=== PATIENT | female | born 1965 | race Two or more races ===

== ENCOUNTER 2022-02-14 20:05 | Inpatient (IN) | payer MEDICAID, OTHER ==
[~2022-02-14] VITALS: Ht 165.1 cm; Wt 64.6 kg
[2022-02-14] MEDS ORDERED: PIOG45TA64 PO (21:11)
[2022-02-14] MEDS ORDERED: VENL-66 PO (21:11)
[2022-02-14] MEDS ORDERED: METF-1211 PO (21:11)
[2022-02-14] MEDS ORDERED: INSU100V36 SQ (21:11)
[2022-02-14] MEDS ORDERED: LEVE500L PO (21:11)
[2022-02-14] MEDS ORDERED: INSU100I26 SQ (21:11)
[2022-02-14] MEDS ORDERED: METF-446 PO (21:11)
[2022-02-14] MEDS ORDERED: LORA-999 PO (21:11)
[2022-02-14] MEDS ORDERED: SERT-440 PO (21:11)
[2022-02-14] MEDS ORDERED: GLIP5TAB11 PO (21:11)
[2022-02-14] MEDS ORDERED: DONE5TAB33 PO (21:11)
[2022-02-14] MEDS ORDERED: SIMV-43 PO (21:11)
[2022-02-14] MEDS ORDERED: MEMA10TA55 PO (21:11)
[2022-02-14] MEDS ORDERED: LORA2VIA8 PO (21:11)
[2022-02-14 22:23] LABS: BASOPHILS % (AUTO) 0.4 % (0.0-2.0); EOSINOPHILS % (AUTO) 3.9 % (1.0-6.0); HEMOGLOBIN 11.8 g/dL (12.0-16.0); LYMPHOCYTES # (AUTO) 2.1 K/uL (1.0-4.8); LYMPHOCYTES % (AUTO) 31.2 % (22.0-44.0); MEAN CORPUSCULAR HEMOGLOBIN 31.7 pg (26.0-34.0); MEAN CORPUSCULAR HGB CONC 33.8 G/dL (31.0-37.0); MEAN CORPUSCULAR VOLUME 94 fL (80-100); MONOCYTES # (AUTO) 0.5 K/uL (0.1-1.0); MONOCYTES % (AUTO) 7.2 % (2.0-9.0); NEUTROPHILS # (AUTO) 3.8 K/uL (1.8-7.7); NEUTROPHILS % (AUTO) 57.3 % (40.0-70.0); PLATELET COUNT (AUTO) 249 K/uL (150-450); RED BLOOD CELL COUNT(AUTO) 3.72 MIL/uL (4.00-5.20); RED CELL DISTRIBUTION WIDTH 13.8 % (11.5-14.5)
[2022-02-14 22:31] LABS: ANION GAP 7 mmol/L (8-16); CALCIUM, TOTAL 9.4 mg/dL (8.8-10.5); CARBON DIOXIDE 32 mmol/L (22-29); CHLORIDE 100 mmol/L (98-107); CREATININE 0.86 mg/dL (0.60-1.30); GLOMERULAR FILTR. RATE CALC > 60 mL/min (>60); GLUCOSE,RANDOM 301 mg/dL (70-110); POTASSIUM 3.7 mmol/L (3.5-5.1); SODIUM SERUM 139 mmol/L (136-145); UREA NITROGEN, BLOOD 20 mg/dL (7-18)
[2022-02-14 22:45] LABS: ALANINE AMINOTRANSFERASE 20 U/L (12-78); ALBUMIN 3.5 g/dL (3.4-5.0); ALKALINE PHOSPHATASE 110 U/L (46-116); ASPARTATE AMINOTRANSFERASE 19 U/L (15-37); BILIRUBIN,TOTAL 0.4 mg/dL (0.1-1.0); THYROID STIMULATING HORMONE 1.07 uIU/mL (0.36-3.74); TOTAL PROTEIN, SERUM 7.5 g/dL (6.4-8.2)
[2022-02-14 23:06] LABS: COVID AG,FIA SOURCE NASAL SWAB
[2022-02-15 00:21] LABS: APPEARANCE,URINE CLEAR (CLEAR); BILIRUBIN,URINE NEGATIVE (NEGATIVE); GLUCOSE, URINE (UA) >=1000 mg/dL (NEGATIVE); KETONES,URINE NEGATIVE (NEGATIVE); LEUKOCYTE ESTERASE ,URINE TRACE (NEGATIVE); NITRATE,URINE NEGATIVE (NEGATIVE); OCCULT BLOOD,URINE NEGATIVE (NEGATIVE); PROTEIN,URINE NEGATIVE (NEGATIVE); SPECIFIC GRAVITIY, URINE 1.026 (1.003-1.030); UROBILINOGEN,URINE <=1.0 mg/dL (<=1.0)
[2022-02-15 00:27] LABS: AMPHET/METH SCREEN,URINE NEGATIVE (NEGATIVE); BARBITURATE SCREEN, URINE NEGATIVE (NEGATIVE); BENZODIAZEPINES SCREEN,URINE NEGATIVE (NEGATIVE); CANNABINOID SCREEN,URINE NEGATIVE (NEGATIVE); COCAINE SCREEN,URINE NEGATIVE (NEGATIVE); METHADONE SCREEN, URINE NEGATIVE (NEGATIVE); OPIATE SCREEN,URINE NEGATIVE (NEGATIVE)
[2022-02-15 00:28] LABS: PHENCYCLIDINE SCREEN,URINE NEGATIVE (NEGATIVE)
[2022-02-15 00:38] LABS: AMORPHOUS SEDIMENT,UR Few /LPF (None Seen); BACTERIA,URINE None Seen /HPF (None Seen); RBC,URINE 0-2 /HPF (0-2); SQUAMOUS EPITHELIAL CELL,UR Rare /LPF (None Seen); WBC,URINE 0-2 /HPF (0-5)
[2022-02-15] MEDS ORDERED: ZOLPIDEM TARTRATE 10 MG TABLET PO PRN (01:00)
[2022-02-15 02:09] VITALS: BP 134/65
[2022-02-15] MEDS: LORazepam 2 MG TABLET PO PRN ×2 (02:42→11:06)
[2022-02-15] MEDS: HALOPERIDOL 5 MG TABLET PO PRN ×3 (02:42→16:07)
[2022-02-15] MEDS ORDERED: INFLUENZA VIRUS VACCINE QVS 2021-22 (6MO+)/PF 60 MCG/0.5 ML SYRINGE IM. ONE (06:15)
[2022-02-15 08:59] VITALS: BP 128/83
[2022-02-15 10:36] VITALS: BP 109/47
[2022-02-15] MEDS: MetFORMIN HCL 500 MG TABLET PO SCH ×2 (11:04→16:07)
[2022-02-15] MEDS: GlipiZIDE 5 MG TABLET PO SCH ×2 (11:04→16:50)
[2022-02-15] MEDS: SERTRALINE HCL 100 MG TABLET PO SCH (11:05)
[2022-02-15] MEDS: DIVALPROEX SODIUM 500 MG DR TABLET PO SCH ×2 (11:05→20:16)
[2022-02-15] MEDS ORDERED: CloNIDine HCL 0.1 MG TABLET PO PRN (11:15)
[2022-02-15] MEDS ORDERED: NICOTINE 14 MG/24 HOUR PATCH TD PRN (11:15)
[2022-02-15] MEDS ORDERED: ALBUTEROL SULFATE HFA 90 MCG/PUFF 8 GM INHALER IH PRN (11:15)
[2022-02-15] MEDS ORDERED: DOCUSATE SODIUM 100 MG CAPSULE PO PRN (11:15)
[2022-02-15] MEDS ORDERED: PETROLATUM,WHITE 28 GM JELLY TP PRN (11:15)
[2022-02-15] MEDS ORDERED: DEXTROSE 50%-WATER 25 GM/50 ML SYRINGE IVP PRN (11:15)
[2022-02-15] MEDS ORDERED: ONDANSETRON HCL 4 MG TABLET PO PRN (11:15)
[2022-02-15] MEDS ORDERED: LOPERAMIDE HCL 2 MG CAPSULE PO PRN (11:15)
[2022-02-15] MEDS ORDERED: MAGNESIUM HYDROXIDE SUSPENSION 30 ML UDCUP PO PRN (11:15)
[2022-02-15] MEDS ORDERED: GuaiFENesin/D-METHORPHAN [SUGAR-FREE] 200-20MG/10 ML SYRUP UDCUP PO PRN (11:15)
[2022-02-15] MEDS: PIOGLITAZONE HCL 45 MG TABLET PO SCH (11:15)
[2022-02-15] MEDS ORDERED: ACETAMINOPHEN 325 MG TABLET PO PRN (11:15)
[2022-02-15] MEDS ORDERED: IBUPROFEN 400 MG TABLET PO PRN (11:15)
[2022-02-15] MEDS ORDERED: MAG HYDROX/AL HYDROX/SIMETH ES 30 ML SUSPENSION UDCUP PO PRN (11:15)
[2022-02-15] MEDS: INSULIN LISPRO 100 UNITS/ML SQ PRN ×3 (11:43→21:35)
[2022-02-15 11:46] LABS: GLUCOMETER DEV NAME(LOC) 3E.C; GLUCOSE,POINT OF CARE 276 MG/DL (70-110)
[2022-02-15] MEDS: LevETIRAcetam 500 MG TABLET PO SCH (16:07)
[2022-02-15 16:17] VITALS: BP 143/76
[2022-02-15 17:01] LABS: GLUCOMETER DEV NAME(LOC) 3E.C; GLUCOSE,POINT OF CARE 236 MG/DL (70-110)
[2022-02-15] MEDS: SIMVASTATIN 20 MG TABLET PO SCH (20:16)
[2022-02-15 20:22] LABS: GLUCOMETER DEV NAME(LOC) 3E.C; GLUCOSE,POINT OF CARE 240 MG/DL (70-110)
[2022-02-16] MEDS: MetFORMIN HCL 500 MG TABLET PO SCH ×2 (06:30→17:42)
[2022-02-16] MEDS: GlipiZIDE 5 MG TABLET PO SCH ×2 (06:30→17:42)
[2022-02-16 06:41] LABS: GLUCOMETER DEV NAME(LOC) 3E.C; GLUCOSE,POINT OF CARE 91 MG/DL (70-110)
[2022-02-16 08:53] VITALS: BP 116/60
[2022-02-16] MEDS: DIVALPROEX SODIUM 500 MG DR TABLET PO SCH ×2 (08:54→20:14)
[2022-02-16] MEDS: PIOGLITAZONE HCL 45 MG TABLET PO SCH (08:54)
[2022-02-16] MEDS: SERTRALINE HCL 100 MG TABLET PO SCH (08:55)
[2022-02-16] MEDS: LevETIRAcetam 500 MG TABLET PO SCH ×2 (08:55→16:37)
[2022-02-16 11:51] LABS: GLUCOMETER DEV NAME(LOC) 3E.C; GLUCOSE,POINT OF CARE 154 MG/DL (70-110)
[2022-02-16 16:18] VITALS: BP 98/60
[2022-02-16 16:56] LABS: GLUCOMETER DEV NAME(LOC) 3E.C; GLUCOSE,POINT OF CARE 177 MG/DL (70-110)
[2022-02-16] MEDS: SIMVASTATIN 20 MG TABLET PO SCH (20:14)
[2022-02-16 20:41] LABS: GLUCOMETER DEV NAME(LOC) 3E.C; GLUCOSE,POINT OF CARE 168 MG/DL (70-110)
[2022-02-17 06:26] LABS: GLUCOMETER DEV NAME(LOC) 3E.C; GLUCOSE,POINT OF CARE 76 MG/DL (70-110)
[2022-02-17] MEDS: GlipiZIDE 5 MG TABLET PO SCH ×2 (06:40→16:52)
[2022-02-17] MEDS: MetFORMIN HCL 500 MG TABLET PO SCH ×2 (06:41→16:52)
[2022-02-17] MEDS: INSULIN LISPRO 100 UNITS/ML SQ PRN ×3 (06:42→21:10)
[2022-02-17 08:35] LABS: GLUCOMETER DEV NAME(LOC) 3E.C; GLUCOSE,POINT OF CARE 99 MG/DL (70-110)
[2022-02-17] MEDS: LevETIRAcetam 500 MG TABLET PO SCH ×2 (09:00→16:52)
[2022-02-17] MEDS: SERTRALINE HCL 100 MG TABLET PO SCH (09:00)
[2022-02-17] MEDS: DIVALPROEX SODIUM 500 MG DR TABLET PO SCH ×2 (09:00→20:04)
[2022-02-17] MEDS: PIOGLITAZONE HCL 45 MG TABLET PO SCH (09:00)
[2022-02-17 10:17] VITALS: BP 105/52
[2022-02-17 12:12] LABS: GLUCOMETER DEV NAME(LOC) 3E.C; GLUCOSE,POINT OF CARE 115 MG/DL (70-110)
[2022-02-17 16:19] VITALS: BP 137/87
[2022-02-17 16:45] LABS: GLUCOMETER DEV NAME(LOC) 3E.C; GLUCOSE,POINT OF CARE 171 MG/DL (70-110)
[2022-02-17] MEDS: SIMVASTATIN 20 MG TABLET PO SCH (20:03)
[2022-02-17 20:26] LABS: GLUCOMETER DEV NAME(LOC) 3E.C; GLUCOSE,POINT OF CARE 212 MG/DL (70-110)
[2022-02-18 06:21] LABS: GLUCOMETER DEV NAME(LOC) 3E.C; GLUCOSE,POINT OF CARE 288 MG/DL (70-110)
[2022-02-18] MEDS: GlipiZIDE 5 MG TABLET PO SCH ×2 (06:33→16:51)
[2022-02-18] MEDS: MetFORMIN HCL 500 MG TABLET PO SCH ×2 (06:34→17:35)
[2022-02-18] MEDS: INSULIN LISPRO 100 UNITS/ML SQ PRN ×4 (06:36→20:38)
[2022-02-18 08:21] VITALS: BP 125/63
[2022-02-18] MEDS: DIVALPROEX SODIUM 500 MG DR TABLET PO SCH ×2 (08:47→20:31)
[2022-02-18] MEDS: HALOPERIDOL 5 MG TABLET PO PRN ×2 (08:47→20:32)
[2022-02-18] MEDS: SERTRALINE HCL 100 MG TABLET PO SCH (08:47)
[2022-02-18] MEDS: LevETIRAcetam 500 MG TABLET PO SCH ×2 (08:47→16:52)
[2022-02-18] MEDS: LORazepam 2 MG TABLET PO PRN (08:47)
[2022-02-18] MEDS: PIOGLITAZONE HCL 45 MG TABLET PO SCH (08:48)
[2022-02-18 16:12] VITALS: BP 123/60
[2022-02-18 17:01] LABS: GLUCOMETER DEV NAME(LOC) 3E.C; GLUCOSE,POINT OF CARE 158 MG/DL (70-110)
[2022-02-18] MEDS: SIMVASTATIN 20 MG TABLET PO SCH (20:31)
[2022-02-18 20:51] LABS: GLUCOMETER DEV NAME(LOC) 3E.C; GLUCOSE,POINT OF CARE 254 MG/DL (70-110)
[2022-02-19] MEDS: MetFORMIN HCL 500 MG TABLET PO SCH (06:59)
[2022-02-19] MEDS: GlipiZIDE 5 MG TABLET PO SCH (06:59)
[2022-02-19 07:06] LABS: GLUCOMETER DEV NAME(LOC) 3E.C; GLUCOSE,POINT OF CARE 135 MG/DL (70-110)
[2022-02-19] MEDS ORDERED: LEVE500T8 PO (09:32)
[2022-02-19] MEDS ORDERED: SERT-440 PO (09:32)
[2022-02-19] MEDS ORDERED: SIMV-43 PO (09:32)
[2022-02-19] MEDS ORDERED: GLIP5TAB11 PO (09:32)
[2022-02-19] MEDS ORDERED: METF-1211 PO (09:32)
[2022-02-19] MEDS ORDERED: PIOG45TA64 PO (09:32)
[2022-02-19] MEDS ORDERED: MEMA10TA55 PO (09:32)
[2022-02-19] MEDS ORDERED: DONE5TAB33 PO (09:32)
[2022-02-19] MEDS ORDERED: DIVA-112 PO (09:32)
[2022-02-19] MEDS: PIOGLITAZONE HCL 45 MG TABLET PO SCH (10:53)
[2022-02-19] MEDS: SERTRALINE HCL 100 MG TABLET PO SCH (10:54)
[2022-02-19] MEDS: DIVALPROEX SODIUM 500 MG DR TABLET PO SCH (10:54)
[2022-02-19] MEDS: LevETIRAcetam 500 MG TABLET PO SCH (10:55)
[2022-02-19] MEDS: INSULIN LISPRO 100 UNITS/ML SQ PRN (13:08)
[2022-02-19 13:21] LABS: GLUCOMETER DEV NAME(LOC) 3E.C; GLUCOSE,POINT OF CARE 183 MG/DL (70-110)
== END 2022-02-19 14:45 | DRG 750 ==
LOC: EMS 20:11 → 3EC 02-15 01:58
PROVIDERS: ADMIT Psychiatry & Neurology Psychiatry; ATTEND Psychiatry & Neurology Psychiatry
DX: F20.0 Paranoid schizophrenia (principal); F03.91 Unspecified dementia, unspecified severity, with behavioral disturbance; E11.9 Type 2 diabetes mellitus without complications; G40.909 Epilepsy, unspecified, not intractable, without status epilepticus; E78.5 Hyperlipidemia, unspecified; F31.9 Bipolar disorder, unspecified; D64.9 Anemia, unspecified; Z20.822 Contact with and (suspected) exposure to COVID-19; Z86.73 Personal history of transient ischemic attack (TIA), and cerebral infarction without residual deficits; Z98.2 Presence of cerebrospinal fluid drainage device; Z28.21 Immunization not carried out because of patient refusal; Z79.4 Long term (current) use of insulin
CPT/HCPCS: 80053; 81001; 82962; 84443; 85025; 87081; 99285; G0480

== ENCOUNTER 2022-04-14 19:48 | Inpatient (IN) | payer MEDICAID, OTHER ==
[~2022-04-14] VITALS: Ht 167.6 cm; Wt 62.9 kg
[~2022-04-14 19:48] MED LIST: DIVA-112 PO; DONE5TAB33 PO; GLIP5TAB11 PO; LEVE500T8 PO; MEMA10TA55 PO; METF-1211 PO; PIOG45TA64 PO; SERT-440 PO; SIMV-43 PO
[2022-04-14 20:50] LABS: BASOPHILS % (AUTO) 0.3 % (0.0-2.0); EOSINOPHILS % (AUTO) 8.3 % (1.0-6.0); HEMATOCRIT 32.6 % (36-46); HEMOGLOBIN 11.1 g/dL (12.0-16.0); LYMPHOCYTES % (AUTO) 31.2 % (22.0-44.0); MEAN CORPUSCULAR HEMOGLOBIN 32.4 pg (26.0-34.0); MEAN CORPUSCULAR HGB CONC 34.1 G/dL (31.0-37.0); MEAN CORPUSCULAR VOLUME 95 fL (80-100); MONOCYTES # (AUTO) 0.6 K/uL (0.1-1.0); MONOCYTES % (AUTO) 8.8 % (2.0-9.0); NEUTROPHILS # (AUTO) 3.3 K/uL (1.8-7.7); NEUTROPHILS % (AUTO) 51.4 % (40.0-70.0); PLATELET COUNT (AUTO) 208 K/uL (150-450); RED BLOOD CELL COUNT(AUTO) 3.43 MIL/uL (4.00-5.20); RED CELL DISTRIBUTION WIDTH 14.6 % (11.5-14.5)
[2022-04-14 20:59] LABS: ANION GAP 7 mmol/L (8-16); CALCIUM, TOTAL 8.9 mg/dL (8.8-10.5); CARBON DIOXIDE 31 mmol/L (22-29); CHLORIDE 102 mmol/L (98-107); CREATININE 0.76 mg/dL (0.60-1.30); GLOMERULAR FILTR. RATE CALC > 60 mL/min (>60); GLUCOSE,RANDOM 135 mg/dL (70-110); POTASSIUM 4.1 mmol/L (3.5-5.1); SODIUM SERUM 140 mmol/L (136-145); UREA NITROGEN, BLOOD 33 mg/dL (7-18)
[2022-04-14 21:04] LABS: ALANINE AMINOTRANSFERASE 21 U/L (12-78); ALBUMIN 3.3 g/dL (3.4-5.0); ALKALINE PHOSPHATASE 77 U/L (46-116); ASPARTATE AMINOTRANSFERASE 13 U/L (15-37); BILIRUBIN,TOTAL 0.3 mg/dL (0.1-1.0); TOTAL PROTEIN, SERUM 7.2 g/dL (6.4-8.2)
[2022-04-14] MEDS ORDERED: QUET25TA36 PO (21:49)
[2022-04-14 22:06] LABS: GLUCOMETER DEV NAME(LOC) ERT.5; GLUCOSE,POINT OF CARE 92 MG/DL (70-110)
[2022-04-14] MEDS ORDERED: ZOLPIDEM TARTRATE 10 MG TABLET PO PRN (22:45)
[2022-04-14 23:08] LABS: COVID AG,FIA SOURCE NASOPHARYNGEAL
[2022-04-14] MEDS ORDERED: PERMETHRIN 5% 60 GM CREAM TP ONE (23:30)
[2022-04-15] MEDS ORDERED: LORazepam 2 MG/ML VIAL IM ONE (00:15)
[2022-04-15] MEDS ORDERED: DiphenhydrAMINE HCL 50 MG/ML VIAL IM ONE (00:15)
[2022-04-15] MEDS ORDERED: HALOPERIDOL LACTATE 5 MG/ML VIAL IM ONE (00:15)
[2022-04-15 12:23] VITALS: BP 104/67
[2022-04-15] MEDS ORDERED: METF-1211 PO (13:28)
[2022-04-15] MEDS ORDERED: GLIP5TAB11 PO (13:28)
[2022-04-15] MEDS ORDERED: PNEUMOCOCCAL VACCINE POLYVALENT 0.5 ML VIAL [PPSV23] IM. ONE (14:00)
[2022-04-15 16:18] VITALS: BP 100/65
[2022-04-15] MEDS: MetFORMIN HCL 500 MG TABLET PO SCH (16:34)
[2022-04-15] MEDS: LevETIRAcetam 500 MG TABLET PO SCH (16:34)
[2022-04-15] MEDS: GlipiZIDE 5 MG TABLET PO SCH (16:34)
[2022-04-15 16:46] LABS: GLUCOMETER DEV NAME(LOC) 3E.C; GLUCOSE,POINT OF CARE 191 MG/DL (70-110)
[2022-04-15] MEDS: SIMVASTATIN 20 MG TABLET PO SCH (20:24)
[2022-04-15] MEDS: LORazepam 2 MG TABLET PO PRN (20:24)
[2022-04-16 06:56] LABS: GLUCOMETER DEV NAME(LOC) 3E.C; GLUCOSE,POINT OF CARE 101 MG/DL (70-110)
[2022-04-16 06:56] LABS: GLUCOMETER DEV NAME(LOC) 3E.C; GLUCOSE,POINT OF CARE 55 MG/DL (70-110)
[2022-04-16] MEDS ORDERED: GlipiZIDE 5 MG TABLET PO SCH (07:00)
[2022-04-16] MEDS ORDERED: ALBUTEROL SULFATE HFA 90 MCG/PUFF 8 GM INHALER IH PRN (07:00)
[2022-04-16] MEDS ORDERED: DOCUSATE SODIUM 100 MG CAPSULE PO PRN (07:00)
[2022-04-16] MEDS ORDERED: NICOTINE 14 MG/24 HOUR PATCH TD PRN (07:00)
[2022-04-16] MEDS ORDERED: MAG HYDROX/AL HYDROX/SIMETH ES 30 ML SUSPENSION UDCUP PO PRN (07:00)
[2022-04-16] MEDS ORDERED: PETROLATUM,WHITE 28 GM JELLY TP PRN (07:00)
[2022-04-16] MEDS: GlipiZIDE 5 MG TABLET PO SCH ×2 (07:00→16:55)
[2022-04-16] MEDS ORDERED: LOPERAMIDE HCL 2 MG CAPSULE PO PRN (07:00)
[2022-04-16] MEDS ORDERED: ONDANSETRON HCL 4 MG TABLET PO PRN (07:00)
[2022-04-16] MEDS ORDERED: GuaiFENesin/D-METHORPHAN [SUGAR-FREE] 200-20MG/10 ML SYRUP UDCUP PO PRN (07:00)
[2022-04-16] MEDS ORDERED: CloNIDine HCL 0.1 MG TABLET PO PRN (07:00)
[2022-04-16] MEDS ORDERED: MAGNESIUM HYDROXIDE SUSPENSION 30 ML UDCUP PO PRN (07:00)
[2022-04-16] MEDS ORDERED: ACETAMINOPHEN 325 MG TABLET PO PRN (07:00)
[2022-04-16] MEDS: MetFORMIN HCL 500 MG TABLET PO SCH ×2 (07:00→16:55)
[2022-04-16] MEDS ORDERED: IBUPROFEN 400 MG TABLET PO PRN (07:00)
[2022-04-16] MEDS ORDERED: MetFORMIN HCL 500 MG TABLET PO SCH (07:30)
[2022-04-16] MEDS: MEMANTINE HCL 10 MG TABLET PO SCH ×2 (09:00→12:29)
[2022-04-16] MEDS ORDERED: LevETIRAcetam 500 MG TABLET PO SCH (09:00)
[2022-04-16] MEDS: PIOGLITAZONE HCL 45 MG TABLET PO SCH ×2 (09:00→12:30)
[2022-04-16] MEDS ORDERED: DONEPEZIL HCL 5 MG TABLET PO SCH (09:00)
[2022-04-16] MEDS: LevETIRAcetam 500 MG TABLET PO SCH ×3 (09:00→16:55)
[2022-04-16] MEDS ORDERED: PIOGLITAZONE HCL 45 MG TABLET PO SCH (09:00)
[2022-04-16] MEDS ORDERED: MEMANTINE HCL 10 MG TABLET PO SCH (09:00)
[2022-04-16] MEDS: DONEPEZIL HCL 5 MG TABLET PO SCH ×2 (09:00→12:30)
[2022-04-16] MEDS: SERTRALINE HCL 100 MG TABLET PO SCH (13:52)
[2022-04-16] MEDS: VALPROIC ACID 250 MG CAPSULE PO SCH ×2 (15:17→21:05)
[2022-04-16 16:18] VITALS: BP 120/62
[2022-04-16] MEDS: QUEtiapine FUMARATE 100 MG TABLET PO PRN (16:55)
[2022-04-16] MEDS ORDERED: SIMVASTATIN 20 MG TABLET PO SCH (21:00)
[2022-04-16] MEDS: SIMVASTATIN 20 MG TABLET PO SCH (21:05)
[2022-04-17] MEDS: GlipiZIDE 5 MG TABLET PO SCH ×2 (06:58→17:51)
[2022-04-17] MEDS: MetFORMIN HCL 500 MG TABLET PO SCH ×2 (06:58→17:51)
[2022-04-17 07:51] LABS: BASOPHILS % (AUTO) 0.2 % (0.0-2.0); EOSINOPHILS % (AUTO) 6.2 % (1.0-6.0); HEMATOCRIT 35.3 % (36-46); LYMPHOCYTES # (AUTO) 1.2 K/uL (1.0-4.8); LYMPHOCYTES % (AUTO) 20.6 % (22.0-44.0); MEAN CORPUSCULAR HEMOGLOBIN 32.3 pg (26.0-34.0); MEAN CORPUSCULAR HGB CONC 34.1 G/dL (31.0-37.0); MEAN CORPUSCULAR VOLUME 95 fL (80-100); MONOCYTES # (AUTO) 0.4 K/uL (0.1-1.0); MONOCYTES % (AUTO) 7.8 % (2.0-9.0); NEUTROPHILS # (AUTO) 3.7 K/uL (1.8-7.7); NEUTROPHILS % (AUTO) 65.2 % (40.0-70.0); PLATELET COUNT (AUTO) 209 K/uL (150-450); RED BLOOD CELL COUNT(AUTO) 3.72 MIL/uL (4.00-5.20); RED CELL DISTRIBUTION WIDTH 14.3 % (11.5-14.5)
[2022-04-17 10:01] VITALS: BP 99/55
[2022-04-17] MEDS: SERTRALINE HCL 100 MG TABLET PO SCH (11:09)
[2022-04-17] MEDS: LevETIRAcetam 500 MG TABLET PO SCH ×2 (11:09→17:51)
[2022-04-17] MEDS: PIOGLITAZONE HCL 45 MG TABLET PO SCH (11:10)
[2022-04-17] MEDS: VALPROIC ACID 250 MG CAPSULE PO SCH ×2 (11:10→20:26)
[2022-04-17] MEDS: DONEPEZIL HCL 5 MG TABLET PO SCH (11:11)
[2022-04-17] MEDS: MEMANTINE HCL 10 MG TABLET PO SCH (11:11)
[2022-04-17 16:06] VITALS: BP 107/74
[2022-04-17 16:32] LABS: GLUCOMETER DEV NAME(LOC) 3E.C; GLUCOSE,POINT OF CARE 126 MG/DL (70-110)
[2022-04-17 16:39] LABS: GLUCOMETER DEV NAME(LOC) 3E.C; GLUCOSE,POINT OF CARE 226 MG/DL (70-110)
[2022-04-17 16:39] LABS: GLUCOMETER DEV NAME(LOC) 3E.C; GLUCOSE,POINT OF CARE 126 MG/DL (70-110)
[2022-04-17] MEDS: SIMVASTATIN 20 MG TABLET PO SCH (20:26)
[2022-04-18 06:26] LABS: GLUCOMETER DEV NAME(LOC) 3E.C; GLUCOSE,POINT OF CARE 73 MG/DL (70-110)
[2022-04-18] MEDS: GlipiZIDE 5 MG TABLET PO SCH ×2 (06:34→16:22)
[2022-04-18] MEDS: MetFORMIN HCL 500 MG TABLET PO SCH ×2 (06:34→16:23)
[2022-04-18 08:21] VITALS: BP 106/69
[2022-04-18] MEDS: PIOGLITAZONE HCL 45 MG TABLET PO SCH ×2 (09:00→10:04)
[2022-04-18] MEDS: DONEPEZIL HCL 5 MG TABLET PO SCH ×2 (09:00→10:04)
[2022-04-18] MEDS: SERTRALINE HCL 100 MG TABLET PO SCH ×2 (09:00→10:04)
[2022-04-18] MEDS: MEMANTINE HCL 10 MG TABLET PO SCH ×2 (09:00→10:04)
[2022-04-18] MEDS: LevETIRAcetam 500 MG TABLET PO SCH ×3 (09:00→16:23)
[2022-04-18] MEDS: VALPROIC ACID 250 MG CAPSULE PO SCH ×2 (10:04→20:14)
[2022-04-18 16:18] VITALS: BP 114/72
[2022-04-18 16:56] LABS: GLUCOMETER DEV NAME(LOC) 3E.C; GLUCOSE,POINT OF CARE 292 MG/DL (70-110)
[2022-04-18] MEDS: LORazepam 2 MG TABLET PO PRN (18:00)
[2022-04-18] MEDS: SIMVASTATIN 20 MG TABLET PO SCH (20:15)
[2022-04-19] MEDS: GlipiZIDE 5 MG TABLET PO SCH ×2 (06:30→16:43)
[2022-04-19] MEDS: MetFORMIN HCL 500 MG TABLET PO SCH ×2 (06:32→16:43)
[2022-04-19 08:09] VITALS: BP 125/49
[2022-04-19] MEDS: PIOGLITAZONE HCL 45 MG TABLET PO SCH (09:00)
[2022-04-19] MEDS: DONEPEZIL HCL 5 MG TABLET PO SCH (09:00)
[2022-04-19] MEDS: LevETIRAcetam 500 MG TABLET PO SCH ×2 (09:00→16:43)
[2022-04-19] MEDS: MEMANTINE HCL 10 MG TABLET PO SCH (09:00)
[2022-04-19] MEDS: VALPROIC ACID 250 MG CAPSULE PO SCH ×2 (09:00→20:23)
[2022-04-19] MEDS: SERTRALINE HCL 100 MG TABLET PO SCH (09:00)
[2022-04-19] MEDS: LORazepam 2 MG TABLET PO PRN (13:31)
[2022-04-19] MEDS: QUEtiapine FUMARATE 100 MG TABLET PO PRN (13:31)
[2022-04-19 16:51] LABS: GLUCOMETER DEV NAME(LOC) 3E.C; GLUCOSE,POINT OF CARE 347 MG/DL (70-110)
[2022-04-19] MEDS: SIMVASTATIN 20 MG TABLET PO SCH (20:23)
[2022-04-20 06:51] LABS: GLUCOMETER DEV NAME(LOC) 3E.C; GLUCOSE,POINT OF CARE 149 MG/DL (70-110)
[2022-04-20] MEDS: GlipiZIDE 5 MG TABLET PO SCH ×2 (07:00→16:52)
[2022-04-20] MEDS: MetFORMIN HCL 500 MG TABLET PO SCH ×2 (07:01→16:51)
[2022-04-20 07:06] LABS: COVID AG,FIA SOURCE NASAL SWAB
[2022-04-20 08:18] VITALS: BP 103/60
[2022-04-20] MEDS: LevETIRAcetam 500 MG TABLET PO SCH ×2 (10:22→16:52)
[2022-04-20] MEDS: DONEPEZIL HCL 5 MG TABLET PO SCH (10:22)
[2022-04-20] MEDS: PIOGLITAZONE HCL 45 MG TABLET PO SCH (10:22)
[2022-04-20] MEDS: SERTRALINE HCL 100 MG TABLET PO SCH (10:23)
[2022-04-20] MEDS: VALPROIC ACID 250 MG CAPSULE PO SCH ×2 (10:23→20:29)
[2022-04-20] MEDS: MEMANTINE HCL 10 MG TABLET PO SCH (10:24)
[2022-04-20] MEDS: LORazepam 2 MG TABLET PO PRN ×2 (10:24→19:34)
[2022-04-20] MEDS: QUEtiapine FUMARATE 100 MG TABLET PO PRN (10:24)
[2022-04-20 16:16] LABS: GLUCOMETER DEV NAME(LOC) 3E.C; GLUCOSE,POINT OF CARE 294 MG/DL (70-110)
[2022-04-20] MEDS: SIMVASTATIN 20 MG TABLET PO SCH (20:29)
[2022-04-21] MEDS: GlipiZIDE 5 MG TABLET PO SCH ×2 (06:33→19:25)
[2022-04-21] MEDS: MetFORMIN HCL 500 MG TABLET PO SCH ×2 (06:33→19:26)
[2022-04-21 06:36] LABS: GLUCOMETER DEV NAME(LOC) 3E.C; GLUCOSE,POINT OF CARE 184 MG/DL (70-110)
[2022-04-21] MEDS: PIOGLITAZONE HCL 45 MG TABLET PO SCH (09:49)
[2022-04-21] MEDS: VALPROIC ACID 250 MG CAPSULE PO SCH (09:50)
[2022-04-21] MEDS: DONEPEZIL HCL 5 MG TABLET PO SCH (09:51)
[2022-04-21] MEDS: MEMANTINE HCL 10 MG TABLET PO SCH (09:51)
[2022-04-21] MEDS: LORazepam 2 MG TABLET PO PRN (09:53)
[2022-04-21] MEDS: LevETIRAcetam 500 MG TABLET PO SCH ×2 (09:53→19:25)
[2022-04-21] MEDS: SERTRALINE HCL 100 MG TABLET PO SCH (09:53)
[2022-04-21] MEDS ORDERED: VALPROIC ACID 250 MG/5 ML SOLUTION UDCUP PO ONE (10:00)
[2022-04-21 16:36] LABS: GLUCOMETER DEV NAME(LOC) 3E.C; GLUCOSE,POINT OF CARE 248 MG/DL (70-110)
[2022-04-21] MEDS: SIMVASTATIN 20 MG TABLET PO SCH (20:11)
[2022-04-21] MEDS: VALPROIC ACID 250 MG/5 ML SOLUTION UDCUP PO SCH (20:11)
[2022-04-22 06:51] LABS: GLUCOMETER DEV NAME(LOC) 3E.C; GLUCOSE,POINT OF CARE 123 MG/DL (70-110)
[2022-04-22] MEDS: GlipiZIDE 5 MG TABLET PO SCH ×2 (06:56→17:32)
[2022-04-22] MEDS: MetFORMIN HCL 500 MG TABLET PO SCH ×2 (06:57→17:32)
[2022-04-22 08:00] VITALS: BP 101/58
[2022-04-22] MEDS: PIOGLITAZONE HCL 45 MG TABLET PO SCH (09:07)
[2022-04-22] MEDS: MEMANTINE HCL 10 MG TABLET PO SCH (09:07)
[2022-04-22] MEDS: DONEPEZIL HCL 5 MG TABLET PO SCH (09:07)
[2022-04-22] MEDS: LORazepam 2 MG TABLET PO PRN (09:07)
[2022-04-22] MEDS: SERTRALINE HCL 100 MG TABLET PO SCH (09:07)
[2022-04-22] MEDS: LevETIRAcetam 500 MG TABLET PO SCH ×2 (09:07→17:32)
[2022-04-22] MEDS: VALPROIC ACID 250 MG/5 ML SOLUTION UDCUP PO SCH ×2 (09:44→20:57)
[2022-04-22 16:57] VITALS: BP 112/64
[2022-04-22 17:16] LABS: GLUCOMETER DEV NAME(LOC) 3E.C; GLUCOSE,POINT OF CARE 211 MG/DL (70-110)
[2022-04-22] MEDS: SIMVASTATIN 20 MG TABLET PO SCH (20:56)
[2022-04-23] MEDS: GlipiZIDE 5 MG TABLET PO SCH ×2 (07:00→16:59)
[2022-04-23] MEDS: MetFORMIN HCL 500 MG TABLET PO SCH ×2 (07:02→16:59)
[2022-04-23] MEDS: PIOGLITAZONE HCL 45 MG TABLET PO SCH (10:42)
[2022-04-23] MEDS: DONEPEZIL HCL 5 MG TABLET PO SCH (10:42)
[2022-04-23] MEDS: MEMANTINE HCL 10 MG TABLET PO SCH (10:42)
[2022-04-23] MEDS: LevETIRAcetam 500 MG TABLET PO SCH ×2 (10:43→16:59)
[2022-04-23] MEDS: SERTRALINE HCL 100 MG TABLET PO SCH (10:44)
[2022-04-23] MEDS: VALPROIC ACID 250 MG/5 ML SOLUTION UDCUP PO SCH ×2 (10:47→20:43)
[2022-04-23] MEDS: LORazepam 2 MG TABLET PO PRN (11:14)
[2022-04-23 11:33] LABS: GLUCOMETER DEV NAME(LOC) 3E.C; GLUCOSE,POINT OF CARE 102 MG/DL (70-110)
[2022-04-23 17:16] LABS: GLUCOMETER DEV NAME(LOC) 3E.C; GLUCOSE,POINT OF CARE 264 MG/DL (70-110)
[2022-04-23] MEDS: SIMVASTATIN 20 MG TABLET PO SCH (20:42)
[2022-04-24] MEDS: MetFORMIN HCL 500 MG TABLET PO SCH ×2 (06:36→21:06)
[2022-04-24] MEDS: GlipiZIDE 5 MG TABLET PO SCH ×2 (06:36→21:07)
[2022-04-24 06:42] LABS: GLUCOMETER DEV NAME(LOC) 3E.C; GLUCOSE,POINT OF CARE 68 MG/DL (70-110)
[2022-04-24 08:10] VITALS: BP 104/51
[2022-04-24] MEDS: MEMANTINE HCL 10 MG TABLET PO SCH (09:00)
[2022-04-24] MEDS: SERTRALINE HCL 100 MG TABLET PO SCH (09:00)
[2022-04-24] MEDS: LevETIRAcetam 500 MG TABLET PO SCH ×2 (09:00→21:07)
[2022-04-24] MEDS: VALPROIC ACID 250 MG/5 ML SOLUTION UDCUP PO SCH ×2 (09:00→21:08)
[2022-04-24] MEDS: DONEPEZIL HCL 5 MG TABLET PO SCH (09:00)
[2022-04-24] MEDS: PIOGLITAZONE HCL 45 MG TABLET PO SCH (09:00)
[2022-04-24] MEDS: QUEtiapine FUMARATE 100 MG TABLET PO PRN (14:36)
[2022-04-24] MEDS: LORazepam 2 MG TABLET PO PRN (14:37)
[2022-04-24 16:11] VITALS: BP 128/78
[2022-04-24 16:16] LABS: GLUCOMETER DEV NAME(LOC) 3E.C; GLUCOSE,POINT OF CARE 313 MG/DL (70-110)
[2022-04-24] MEDS: SIMVASTATIN 20 MG TABLET PO SCH (21:08)
[2022-04-25 06:41] LABS: GLUCOMETER DEV NAME(LOC) 3E.C; GLUCOSE,POINT OF CARE 74 MG/DL (70-110)
[2022-04-25] MEDS: GlipiZIDE 5 MG TABLET PO SCH ×2 (06:43→16:28)
[2022-04-25] MEDS: MetFORMIN HCL 500 MG TABLET PO SCH ×2 (06:43→16:29)
[2022-04-25] MEDS: LevETIRAcetam 500 MG TABLET PO SCH ×2 (08:57→16:29)
[2022-04-25] MEDS: DONEPEZIL HCL 5 MG TABLET PO SCH (08:57)
[2022-04-25] MEDS: LORazepam 2 MG TABLET PO PRN (08:57)
[2022-04-25] MEDS: SERTRALINE HCL 100 MG TABLET PO SCH (08:57)
[2022-04-25] MEDS: PIOGLITAZONE HCL 45 MG TABLET PO SCH (08:57)
[2022-04-25] MEDS: VALPROIC ACID 250 MG/5 ML SOLUTION UDCUP PO SCH ×2 (08:57→20:23)
[2022-04-25] MEDS: MEMANTINE HCL 10 MG TABLET PO SCH (08:57)
[2022-04-25] MEDS ORDERED: DIVA-112 PO (16:04)
[2022-04-25 16:21] LABS: GLUCOMETER DEV NAME(LOC) 3E.C; GLUCOSE,POINT OF CARE 205 MG/DL (70-110)
[2022-04-25 17:15] VITALS: BP 106/60
[2022-04-25] MEDS: SIMVASTATIN 20 MG TABLET PO SCH (20:22)
[2022-04-26 06:21] LABS: GLUCOMETER DEV NAME(LOC) 3E.C; GLUCOSE,POINT OF CARE 133 MG/DL (70-110)
[2022-04-26] MEDS: GlipiZIDE 5 MG TABLET PO SCH ×2 (06:32→18:34)
[2022-04-26] MEDS: MetFORMIN HCL 500 MG TABLET PO SCH ×2 (06:32→18:34)
[2022-04-26] MEDS ORDERED: PERMETHRIN 5% 60 GM CREAM TP ONE (08:45)
[2022-04-26 09:06] VITALS: BP 114/62
[2022-04-26] MEDS: SERTRALINE HCL 100 MG TABLET PO SCH (09:33)
[2022-04-26] MEDS: VALPROIC ACID 250 MG/5 ML SOLUTION UDCUP PO SCH ×2 (09:33→20:20)
[2022-04-26] MEDS: LORazepam 2 MG TABLET PO PRN (09:35)
[2022-04-26] MEDS: LevETIRAcetam 500 MG TABLET PO SCH ×2 (09:36→18:34)
[2022-04-26] MEDS: PIOGLITAZONE HCL 45 MG TABLET PO SCH (11:03)
[2022-04-26] MEDS: DONEPEZIL HCL 5 MG TABLET PO SCH (11:03)
[2022-04-26] MEDS: MEMANTINE HCL 10 MG TABLET PO SCH (11:03)
[2022-04-26 16:15] VITALS: BP 111/62
[2022-04-26 16:46] LABS: GLUCOMETER DEV NAME(LOC) 3E.C; GLUCOSE,POINT OF CARE 214 MG/DL (70-110)
[2022-04-26] MEDS: SIMVASTATIN 20 MG TABLET PO SCH (20:20)
[2022-04-27] MEDS: GlipiZIDE 5 MG TABLET PO SCH ×2 (06:35→17:32)
[2022-04-27] MEDS: MetFORMIN HCL 500 MG TABLET PO SCH ×2 (06:35→17:32)
[2022-04-27 06:36] LABS: GLUCOMETER DEV NAME(LOC) 3E.C; GLUCOSE,POINT OF CARE 131 MG/DL (70-110)
[2022-04-27 09:46] VITALS: BP 129/53
[2022-04-27] MEDS: PIOGLITAZONE HCL 45 MG TABLET PO SCH (11:33)
[2022-04-27] MEDS: SERTRALINE HCL 100 MG TABLET PO SCH (11:35)
[2022-04-27] MEDS: MEMANTINE HCL 10 MG TABLET PO SCH (11:35)
[2022-04-27] MEDS: LevETIRAcetam 500 MG TABLET PO SCH ×2 (11:35→17:32)
[2022-04-27] MEDS: VALPROIC ACID 250 MG/5 ML SOLUTION UDCUP PO SCH ×2 (11:35→20:18)
[2022-04-27] MEDS: DONEPEZIL HCL 5 MG TABLET PO SCH (11:36)
[2022-04-27 17:00] VITALS: BP 135/87
[2022-04-27 17:01] LABS: GLUCOMETER DEV NAME(LOC) 3E.C; GLUCOSE,POINT OF CARE 221 MG/DL (70-110)
[2022-04-27] MEDS: SIMVASTATIN 20 MG TABLET PO SCH (20:18)
[2022-04-28 06:21] LABS: GLUCOMETER DEV NAME(LOC) 3E.C; GLUCOSE,POINT OF CARE 137 MG/DL (70-110)
[2022-04-28] MEDS: GlipiZIDE 5 MG TABLET PO SCH ×2 (06:36→16:37)
[2022-04-28] MEDS: MetFORMIN HCL 500 MG TABLET PO SCH ×2 (06:36→16:37)
[2022-04-28 08:34] VITALS: BP 106/56
[2022-04-28] MEDS: PIOGLITAZONE HCL 45 MG TABLET PO SCH (08:34)
[2022-04-28] MEDS: DONEPEZIL HCL 5 MG TABLET PO SCH (08:34)
[2022-04-28] MEDS: MEMANTINE HCL 10 MG TABLET PO SCH (08:35)
[2022-04-28] MEDS: SERTRALINE HCL 100 MG TABLET PO SCH (08:35)
[2022-04-28] MEDS: LevETIRAcetam 500 MG TABLET PO SCH ×2 (08:35→16:37)
[2022-04-28] MEDS: VALPROIC ACID 250 MG/5 ML SOLUTION UDCUP PO SCH ×2 (08:35→20:05)
[2022-04-28 16:12] VITALS: BP 132/78
[2022-04-28 16:36] LABS: GLUCOMETER DEV NAME(LOC) 3E.C; GLUCOSE,POINT OF CARE 259 MG/DL (70-110)
[2022-04-28] MEDS: LORazepam 2 MG TABLET PO PRN (18:00)
[2022-04-28] MEDS: SIMVASTATIN 20 MG TABLET PO SCH (20:05)
[2022-04-29 06:37] LABS: GLUCOMETER DEV NAME(LOC) 3E.C; GLUCOSE,POINT OF CARE 171 MG/DL (70-110)
[2022-04-29] MEDS: GlipiZIDE 5 MG TABLET PO SCH (06:43)
[2022-04-29] MEDS: MetFORMIN HCL 500 MG TABLET PO SCH (06:44)
[2022-04-29 07:13] LABS: COVID AG,FIA SOURCE NASAL SWAB
[2022-04-29 08:18] VITALS: BP 121/59
[2022-04-29] MEDS: MEMANTINE HCL 10 MG TABLET PO SCH (08:38)
[2022-04-29] MEDS: VALPROIC ACID 250 MG/5 ML SOLUTION UDCUP PO SCH (08:38)
[2022-04-29] MEDS: LevETIRAcetam 500 MG TABLET PO SCH (08:38)
[2022-04-29] MEDS: DONEPEZIL HCL 5 MG TABLET PO SCH (08:38)
[2022-04-29] MEDS: SERTRALINE HCL 100 MG TABLET PO SCH (08:38)
[2022-04-29] MEDS: PIOGLITAZONE HCL 45 MG TABLET PO SCH (08:38)
== END 2022-04-29 14:30 | DRG 750 ==
LOC: EMS 19:59 → 3EC 04-15 07:15
PROVIDERS: ADMIT Psychiatry & Neurology Psychiatry; ATTEND Psychiatry & Neurology Psychiatry
DX: F25.0 Schizoaffective disorder, bipolar type (principal); F03.90 Unspecified dementia, unspecified severity, without behavioral disturbance, psychotic disturbance, mood disturbance, and anxiety; E11.9 Type 2 diabetes mellitus without complications; B86 Scabies; E78.00 Pure hypercholesterolemia, unspecified; E78.5 Hyperlipidemia, unspecified; G40.909 Epilepsy, unspecified, not intractable, without status epilepticus; F31.9 Bipolar disorder, unspecified; F94.0 Selective mutism; I10 Essential (primary) hypertension; Z20.822 Contact with and (suspected) exposure to COVID-19; Z86.16 Personal history of COVID-19; Z86.73 Personal history of transient ischemic attack (TIA), and cerebral infarction without residual deficits; Z91.51 Personal history of suicidal behavior; Z98.2 Presence of cerebrospinal fluid drainage device; Z79.84 Long term (current) use of oral hypoglycemic drugs; Z28.9 Immunization not carried out for unspecified reason
CPT/HCPCS: 80053; 80164; 82962; 85025; 87081; 99285; G0480; J1200; J1630; J2060